=== PATIENT | female | born 1995 | race Caucasian/White ===

== ENCOUNTER 2017-11-11 15:39 | Emergency (ER) | payer OTHER ==
[2017-11-11] MEDS ORDERED: PANTOPRAZOLE IV PUSH 40 MG VIAL. IVP (16:15)
[2017-11-11 16:37] LABS: URINE HCG POC HCG NEGATIVE (Negative)
[2017-11-11 16:37] LABS: BILIRUBIN,URINE NEGATIVE (NEG); CLARITY,URINE CLEAR; COLOR,URINE YELLOW; GLUCOSE,URINE NEGATIVE (NEG); NITRITE,URINE NEGATIVE (NEG); PH,URINE 7.5; PROTEIN,URINE NEGATIVE (NEG-TRACE)
[2017-11-11 16:43] LABS: BACTERIA,URINE FEW /HPF (0-FEW); RBC,URINE RARE /HPF (0-2); WBC,URINE OCC /HPF (0-4)
[2017-11-11 16:44] LABS: SQUAMOUS EPITHELIAL CELL,UR FEW /LPF
[2017-11-11] MEDS: IV NORMAL SALINE 1000ML BAG 1,000 ML IV (17:22)
[2017-11-11] MEDS: PROCHLORPERAZINE 10 MG/2 ML VIAL. IV (17:25)
[2017-11-11] MEDS: diphenhydrAMINE 50 MG/ML VIAL IVP (17:25)
[2017-11-11] MEDS: KETOROLAC 30 MG/ML INJ. IV (17:25)
[2017-11-11 17:35] LABS: ADD MAN DIFF? NO
[2017-11-11 17:37] LABS: BASO # 0.1 x10^3/uL (0.0-0.2); BASO % 1 % (0-3); EOS # 0.1 x10^3/uL (0.0-0.7); EOS % 1 % (0-3); HEMATOCRIT 43.7 % (36.0-47.0); HEMOGLOBIN 14.9 g/dL (12.0-15.5); LYMPH # 2.4 x10^3/uL (1.0-4.8); LYMPH % 19 % (24-48); MEAN CORPUSCULAR HEMOGLOBIN 28 pg (25-35); MEAN CORPUSCULAR HGB CONC 34 g/dL (31-37); MEAN CORPUSCULAR VOLUME 81 fL (79-100); MONO % 8 % (0-9); NEUT # 8.8 x10^3uL (1.8-7.7); NEUT % 72 % (31-73); PLATELET COUNT 309 x10^3/uL (140-400); RED BLOOD COUNT 5.37 x10^6/uL (3.50-5.40); RED CELL DISTRIBUTION WIDTH 13.8 % (11.5-14.5); WHITE BLOOD COUNT 12.3 x10^3/uL (4.0-11.0)
[2017-11-11 17:52] LABS: ANION GAP 11 (6-14); BLOOD UREA NITROGEN 11 mg/dL (7-20); BUN/CREATININE RATIO 16 (6-20); CARBON DIOXIDE 25 mmol/L (21-32); CHLORIDE 103 mmol/L (98-107); CREATININE 0.7 mg/dL (0.6-1.0); GFR 106.7; GLUCOSE 87 mg/dL (70-99); POTASSIUM 4.5 mmol/L (3.5-5.1); SODIUM 139 mmol/L (136-145)
[2017-11-11 17:56] LABS: ALBUMIN 3.6 g/dL (3.4-5.0); ALBUMIN/GLOBULIN RATIO 1.1 (1.0-1.7); ALK PHOS 108 U/L (46-116); ALT (SGPT) 33 U/L (14-59); AST (SGOT) 14 U/L (15-37); LIPASE 84 U/L (73-393); TOTAL BILIRUBIN 0.3 mg/dL (0.2-1.0)
== END 2017-11-11 18:52 | disposition home or self-care (01) ==
LOC: ER 15:39
DX: R11.2 Nausea with vomiting, unspecified (principal); R51 Headache; R42 Dizziness and giddiness; R10.32 Left lower quadrant pain; F17.210 Nicotine dependence, cigarettes, uncomplicated; Z88.0 Allergy status to penicillin; Z88.1 Allergy status to other antibiotic agents; Z87.442 Personal history of urinary calculi
CPT/HCPCS: 36415; 70450; 74176; 80053; 81001; 81025; 83690; 85025; 93005; 96361; 96374; 96375; 99285-25; J0780; J1200; J1885; J7030

== ENCOUNTER 2017-11-21 19:01 | Emergency (ER) | payer OTHER ==
[2017-11-21] MEDS: DEXAMETHASONE 4 MG TABLET PO (20:11)
== END 2017-11-21 20:05 | disposition home or self-care (01) ==
LOC: ER 19:01
DX: H92.03 Otalgia, bilateral (principal); G43.909 Migraine, unspecified, not intractable, without status migrainosus; Z87.442 Personal history of urinary calculi; Z88.0 Allergy status to penicillin; Z88.1 Allergy status to other antibiotic agents
CPT/HCPCS: 99281; 99283

== ENCOUNTER 2018-01-23 15:09 | Emergency (ER) | payer OTHER ==
[~2018-01-23] VITALS: Ht 160 cm; Wt 81.6 kg
[~2018-01-23 15:09] MED LIST: ONDA4TAB10 SL
[2018-01-23 15:39] VITALS: BP 121/70
[2018-01-23] MEDS ORDERED: ALBUTEROL SULFATE 2.5 MG/3 ML NEBU. NEB ONE (16:30)
[2018-01-23] MEDS ORDERED: PROAIR HFA8.5 GM INH (18:07)
[2018-01-23] MEDS ORDERED: BENZ100C PO (18:07)
--- NOTE | 2018-01-23 18:08 | PHYS DOC ---
Past Medical History Past Medical History: Asthma, Ectopic , Migraines Past Surgical History: Cancer Surgery Additional Past Surgical Histo: kidney stone, ectopic Alcohol Use: None Drug Use: None Adult General Chief Complaint Chief Complaint: ASTHMA HPI HPI Patient is a 22 year old female who presents to the emergency Department today with complaints of right-sided lateral rib pain with cough and deep breath. She also reports wheezing and shortness of breath for the last 3 days with a history of asthma. She denies any fever, nausea, vomiting, back pain, abdominal pain, urinary symptoms, or ear pain. She states she has had diarrhea recently. She states she has been using her Pro Air inhaler and taking dayquil at home but these medications have not been helping to reduce her symptoms. Review of Systems Review of Systems Constitutional: Denies fever or chills [] Eyes: Denies change in visual acuity, redness, or eye pain [] HENT: Denies nasal congestion,ear pain, or sore throat [] Respiratory: Reports cough, wheezing, and shortness of breath [] Cardiovascular: Denies palpitations or dizziness GI: Denies abdominal pain, nausea, or vomiting; reports diarrhea for the last 3 days : Denies dysuria, urinary frequency, or hematuria [] Musculoskeletal: Denies back pain or joint pain [] Integument: Denies rash or skin lesions [] Neurologic: Denies headache, focal weakness or sensory changes [] All other systems were reviewed and found to be within normal limits, except as documented in this note. Current Medications Current Medications Current Medications Medications (Trade) Dose Ordered Sig/Izabella Start Time Stop Time Status Last Admin Dose Admin Albuterol Sulfate (Ventolin Neb Soln) 2.5 mg 1X ONCE 01/23/18 16:30 01/23/18 16:31 DC 01/23/18 16:52 2.5 MG Allergies Allergies Allergies Coded Allergies Type Severity Reaction Last Updated Verified Penicillins Allergy Intermediate 11/11/17 Yes amoxicillin Allergy Intermediate 11/11/17 Yes Physical Exam Physical Exam Constitutional: Well developed, well nourished, no acute distress, non-toxic appearance. [] HENT: Normocephalic, atraumatic, bilateral external ears normal, oropharynx moist, no oral exudates, nose normal. [] Eyes: PERRLA, EOMI, conjunctiva normal, no discharge. [] Neck: Normal range of motion, no tenderness, supple, no stridor. [] Cardiovascular:Heart rate regular rhythm, no murmur [] Lungs & Thorax: Bilateral breath sounds clear to auscultation, diminished in bilateral bases [] Skin: Warm, dry, no erythema, no rash. [] Extremities: No cyanosis, no clubbing, ROM intact, no edema. [] Neurologic: Alert and oriented X 3, normal motor function, normal sensory function, no focal deficits noted. [] Psychologic: Affect normal, judgement normal, mood normal. [] Current Patient Data Vital Signs Vital Signs Date Time Temp Pulse Resp B/P (MAP) Pulse Ox O2 Delivery O2 Flow Rate FiO2 01/23/18 16:52 98 Room Air 01/23/18 15:39 98.9 105 18 121/70 (87) 98.9 EKG EKG [] Radiology/Procedures Radiology/Procedures cxr negative, read by Dr. Montenegro [] Course & Med Decision Making Course & Med Decision Making Pertinent Labs and Imaging studies reviewed. (See chart for details) Dx: URI, asthma exacerbation CXR normal, pt was given one albuterol nebulizer tx in the ER, lung sounds improved and clear in all eavns after treatment. Prescriptions for proair MDI and tessalon written. Patient verbalized an understanding of home care, medications, follow-up, and return to ED instructions and was in agreement with the plan of care. [] Dragon Disclaimer Dragon Disclaimer This electronic medical record was generated, in whole or in part, using a voice recognition dictation system. Departure Departure Impression: Primary Impression: URI (upper respiratory infection) Additional Impression: Asthma Disposition: 01 HOME, SELF-CARE Condition: STABLE Referrals: NO PCP (PCP) Patient Instructions: Asthma, Adult, [id number], Upper Respiratory Infection , Adult, [id number] Additional Instructions: Fill prescription(s) and use as directed. Cool mist humidifier in room at bedtime. Tylenol or ibuprofen prn pain/fever. Increase clear fluids. Avoid triggers such as smoke, fragrance, dust, and pollen. Follow-up with your primary care doctor next week, return to the ER if your symptoms worsen. Scripts Benzonatate (TESSALON PERLE) 100 Mg Capsule 1 CAP PO TID, #21 CAP 0 Refills Prov: DANIEL SMITH LOOM MECHANIC 01/23/18 Albuterol Sulfate (PROAIR HFA INHALER) 8.5 Gm Hfa.aer.ad 1-2 PUFF INH PRN Q4-6HRS PRN for SHORTNESS OF BREATH, #1 INHALER 1 Refill Prov: DANIEL SMITH LOOM MECHANIC 01/23/18 Problem Qualifiers Primary Impression: URI (upper respiratory infection) URI type: unspecified URI Qualified Codes: J06.9 - Acute upper respiratory infection, unspecified Additional Impression: Asthma Asthma severity: mild Asthma persistence: intermittent Asthma complication type: uncomplicated Qualified Codes: J45.20 - Mild intermittent asthma, uncomplicated DANIEL SMITH LOOM MECHANIC Jan 23, 2018 18:07
--- NOTE | 2018-01-23 21:55 | RAD ---
CHEST PA LATERAL History: CONGESTION. HX OF ASTHMA.. Comparison: None. Heart size: Within normal limits. Natalia/mediastinum: Within normal limits Lungs: No focal airspace consolidation. Pleura: No evidence of pleural effusion. Pneumothorax: None visualized Bones: Regional skeleton appears grossly intact. Miscellaneous: None Impression: No acute radiographic findings. Electronically signed by: Kaden Villatoro MD (01/23/2018 9:51 PM) [facility]
== END 2018-01-23 18:20 | disposition home or self-care (01) ==
LOC: ER 15:09
DX: J45.20 Mild intermittent asthma, uncomplicated (principal); J06.9 Acute upper respiratory infection, unspecified; R07.81 Pleurodynia; R19.7 Diarrhea, unspecified; G43.909 Migraine, unspecified, not intractable, without status migrainosus; Z88.0 Allergy status to penicillin; Z88.1 Allergy status to other antibiotic agents
CPT/HCPCS: 71046; 94640; 99284; J7613

== ENCOUNTER → 2018-05-03 | Day surgery (SDC) | payer OTHER ==
[~2018-05-03] MED LIST changes: +ALBU2.5V8 INH; +BENZ100C PO; +IV RINGERS,LACTATED 1000ML 1,000 ML IV SCH; +LIDOCAINE 1% PF 2 ML VIAL. ID PRN; +MIDAZOLAM HCL/PF 2 MG/2 ML VIAL. IV PRN; +PROPOFOL 20 ML IV ONE; +fentaNYL PF VIAL 100 MCG/2 ML VIAL IV PRN
[2018-05-03 12:01] LABS: U PREG PATIENT NEGATIVE (NEG)
[2018-05-03 12:35] VITALS: BP 109/59
--- NOTE | 2018-05-03 18:36 | CONS ---
DATE OF CONSULTATION: 05/03/2018 REASON FOR CONSULTATION: Persistent right upper quadrant abdominal pain, nausea and vomiting. HISTORY OF PRESENT ILLNESS: A 23-year-old female whose past medical history is significant for gastric ulcers, 1, para 1, seen with persistent intermittent right upper quadrant abdominal pain, which was exacerbated by fatty, greasy and spicy food. She had one episode when she was actually in the hospital for approximately 2 weeks, at which time, imaging studies including CT, ultrasound were unrevealing. Family history is positive for gallbladder disease with her sister and mother as well as ulcer disease with her mom. With the continued issues and the lack of resolution with Zocor, Pepcid, and dicyclomine, she is here today. PAST MEDICAL HISTORY: History of gastric ulcers, anxiety, 1, para 1. ALLERGIES: AMOXICILLIN. FAMILY HISTORY: Significant for diabetes with grandmother, peptic ulcer disease with her mother and gallbladder disease with her mother and sister. MEDICATIONS: Include sucralfate, famotidine and dicyclomine. PAST SURGICAL HISTORY: Oophorectomy, nephrolithiasis, 3 LEEP procedures. REVIEW OF SYSTEMS: Per records. PHYSICAL EXAMINATION: GENERAL: Reveals a well-nourished, well-developed female who is alert and oriented, no acute distress. LUNGS: Clear. CARDIOVASCULAR: Reveals an S1, S2 without S3, S4 or appreciable murmur. ABDOMEN: Reveals soft abdomen with epigastric tenderness to deep palpation. No appreciable hepatosplenomegaly. EXTREMITIES: Reveals no cyanosis, clubbing or edema. IMPRESSION AND PLAN: Right upper quadrant epigastric abdominal pain, etiology is to be determined. Differential includes celiac disease, peptic ulcer disease and/or chronic cholecystitis. We will recommend upper endoscopy to further assess. If this is unrevealing, then HIDA scan with ejection fraction would be pursued. ELIZABET MON MD DR: EDIS/haven JOB#: [id number] / [id number] LANI Fitzpatrick
== END | disposition home or self-care (01) ==
LOC: ENDOS 11:19
PROVIDERS: ATTEND Internal Medicine Gastroenterology
DX: K29.50 Unspecified chronic gastritis without bleeding (principal); J45.909 Unspecified asthma, uncomplicated; F41.9 Anxiety disorder, unspecified; Z83.3 Family history of diabetes mellitus; G43.909 Migraine, unspecified, not intractable, without status migrainosus; Z88.0 Allergy status to penicillin; Z98.890 Other specified postprocedural states; Z87.442 Personal history of urinary calculi; Z79.899 Other long term (current) drug therapy; Z90.721 Acquired absence of ovaries, unilateral; F17.200 Nicotine dependence, unspecified, uncomplicated; Z88.1 Allergy status to other antibiotic agents
CPT/HCPCS: 43235; 81025; J2704

== ENCOUNTER 2018-05-12 18:31 | Emergency (ER) | payer OTHER ==
[~2018-05-12] VITALS: Ht 160 cm; Wt 83.0 kg
[~2018-05-12 18:31] MED LIST changes: -IV RINGERS,LACTATED 1000ML 1,000 ML IV SCH; -LIDOCAINE 1% PF 2 ML VIAL. ID PRN; -MIDAZOLAM HCL/PF 2 MG/2 ML VIAL. IV PRN; -PROPOFOL 20 ML IV ONE; -fentaNYL PF VIAL 100 MCG/2 ML VIAL IV PRN
[2018-05-12 19:20] VITALS: BP 129/87
--- NOTE | 2018-05-12 23:23 | PHYS DOC ---
Past Medical History Past Medical History: Asthma, Ectopic , Migraines Past Surgical History: Cancer Surgery Additional Past Surgical Histo: kidney stone, ectopic Alcohol Use: None Drug Use: None Adult General Chief Complaint Chief Complaint: ABDOMINAL PAIN HPI HPI Patient is a 23 year old female who presents to the emergency room with complaints of right lower quadrant pain and right-sided abdominal pain for the last 2 months. Patient states that the pain has been increased over the last 3 days. Currently she reports the pain as 8 out of 10 on the pain scale. Patient states she was sent from the urgent care center to be evaluated for appendicitis. She reports having difficulty urinating, headache, sore throat, ear pain, dry cough, and a fever up to 104 over the last 3 days. Patient last took 2 full strength Tylenol at approximately 1800 this evening. She states that she has vomited 3 or 4 times in the last 24 hours, she denies any diarrhea. Patient states that her last menstrual period was on March 27, she reports having a Nexplanon implant and denies chance of . Patient states that she does not smoke, drink alcohol, or use any illicit drugs. Review of Systems Review of Systems Constitutional: See history of present illness Eyes: Denies redness, or eye pain [] HENT: See history of present illness Respiratory: Denies wheezing or shortness of breath; see history of present illness Cardiovascular: No additional information not addressed in HPI [] GI: Denies diarrhea; history of present illness [] : Denies irregular vaginal discharge, or vaginal odor; reports having difficulty urinating over the last couple of days. Musculoskeletal: Denies back pain or joint pain [] Integument: Denies rash or skin lesions [] Neurologic: Denies focal weakness or sensory changes [] complete systems were reviewed and found to be within normal limits, except as documented in this note. Allergies Allergies Allergies Coded Allergies Type Severity Reaction Last Updated Verified Penicillins Allergy Intermediate 11/11/17 Yes amoxicillin Allergy Intermediate 11/11/17 Yes Physical Exam Physical Exam Constitutional: Well developed, well nourished, no acute distress, non-toxic appearance. [] HENT: Normocephalic, atraumatic, bilateral external ears normal, bilateral TMs normal, posterior pharynx is normal oropharynx moist, no oral exudates, nose normal. [] Eyes: conjunctiva normal, no discharge. [] Neck: Normal range of motion, no tenderness, supple, no stridor. [] Cardiovascular:Heart rate regular rhythm, no murmur [] Lungs & Thorax: Bilateral breath sounds clear to auscultation [] Abdomen: Bowel sounds normal, soft, no masses, no pulsatile masses; right lower quadrant and right upper quadrant tenderness to palpation, negative Rovsing sign , negative psoas sign, positive McBurney's point tenderness [] Skin: Warm, dry, no erythema, no rash. [] Extremities: No cyanosis, no clubbing, ROM intact, no edema. [] Neurologic: Alert and oriented X 3, normal motor function, normal sensory function, no focal deficits noted. [] Psychologic: Affect normal, judgement normal, mood normal. [] Current Patient Data Vital Signs Vital Signs Date Time Temp Pulse Resp B/P (MAP) Pulse Ox O2 Delivery O2 Flow Rate FiO2 05/12/18 19:20 98.8 98 16 129/87 (101) 96 Room Air 98.8 Lab Values Laboratory Tests Test 05/12/18 19:30 POC Urine HCG, Qualitative Hcg negative (Negative) EKG EKG [] Radiology/Procedures Radiology/Procedures [] Course & Med Decision Making Course & Med Decision Making Pertinent Labs and Imaging studies reviewed. (See chart for details) 2006- patient refused further treatment of medical condition in the ER, wished to sign out AGAINST MEDICAL ADVICE. Pt was encouraged to stay for treatment advised possible delay in care if leaving AMA, pt refused to stay reports that she wishes to be treated elsewhere. [] Dragon Disclaimer Dragon Disclaimer This electronic medical record was generated, in whole or in part, using a voice recognition dictation system. Departure Departure Impression: Primary Impression: Left against medical advice Disposition: 07 AGAINST MEDICAL ADVICE Condition: STABLE SELWYNDANIEL BLANCO Lay DIGITAL COMMUNITY MANAGER May 12, 2018 23:23
== END 2018-05-12 20:12 | disposition left against medical advice (07) ==
LOC: ER 18:31
DX: R10.31 Right lower quadrant pain (principal); R10.11 Right upper quadrant pain; R30.0 Dysuria; R51 Headache; J02.9 Acute pharyngitis, unspecified; R05 Cough; R50.9 Fever, unspecified; R11.10 Vomiting, unspecified; J45.909 Unspecified asthma, uncomplicated; G43.909 Migraine, unspecified, not intractable, without status migrainosus; Z88.0 Allergy status to penicillin; Z88.1 Allergy status to other antibiotic agents
CPT/HCPCS: 81025; 99282

== ENCOUNTER 2020-06-19 13:20 | Emergency (ER) | payer OTHER ==
[~2020-06-19] VITALS: Ht 160 cm; Wt 90.0 kg
[2020-06-19] MEDS ORDERED: MORPHINE SULFATE 4 MG/ML VIAL. IV ONE (15:15)
--- NOTE | 2020-06-19 15:19 | PHYS DOC ---
Past Medical History Past Medical History: Asthma, Ectopic , Migraines Past Surgical History: Cancer Surgery Additional Past Surgical Histo: kidney stone, ectopic Smoking Status: Current Every Day Smoker Alcohol Use: None Drug Use: None Adult General Chief Complaint Chief Complaint: ABDOMINAL PAIN HPI HPI Patient is a 25 year old female presenting the emergency department for new onset of abdominal pain. Patient underwent laparoscopy for endometriosis yesterday. Patient presented to the clinic this morning and was noted to have more bruising and tenderness of her her incision sites. CLIENT SOLUTIONS MANAGER called ahead and asked the patient be evaluated and was concerned about a week or injury intra- abdominally. Patient is stating that she is been having worsening abdominal pain but denies any fevers, chills, dizziness or lightheadedness. Review of Systems Review of Systems Constitutional: Denies fever or chills [] Eyes: Denies change in visual acuity, redness, or eye pain [] HENT: Denies nasal congestion or sore throat [] Respiratory: Denies cough or shortness of breath [] Cardiovascular: No additional information not addressed in HPI [] GI: Denies abdominal pain, nausea, vomiting, bloody stools or diarrhea [] : Denies dysuria or hematuria [] Musculoskeletal: Denies back pain or joint pain [] Integument: Denies rash or skin lesions [] Neurologic: Denies headache, focal weakness or sensory changes [] Endocrine: Denies polyuria or polydipsia [] All other systems were reviewed and found to be within normal limits, except as documented in this note. Current Medications Current Medications Current Medications Medications (Trade) Dose Ordered Sig/Izabella Start Time Stop Time Status Last Admin Dose Admin Info (CONTRAST GIVEN -- Rx MONITORING) 1 each PRN DAILY PRN 06/19/20 15:45 06/21/20 15:44 Iohexol (Omnipaque 300 Mg/ml) 75 ml 1X ONCE 06/19/20 15:30 06/19/20 15:32 DC 06/19/20 15:30 75 ML Ketorolac Tromethamine (Toradol 15mg Vial) 15 mg STK-MED ONCE 06/19/20 16:21 06/19/20 16:22 DC Morphine Sulfate (Morphine Sulfate) 4 mg 1X ONCE 06/19/20 15:15 06/19/20 15:18 DC 06/19/20 15:31 4 MG Allergies Allergies Allergies Coded Allergies Type Severity Reaction Last Updated Verified Penicillins Allergy Intermediate 11/11/17 Yes amoxicillin Allergy Intermediate 11/11/17 Yes Physical Exam Physical Exam Constitutional: Well developed, well nourished, no acute distress, non-toxic appearance. [] HENT: Normocephalic, atraumatic, bilateral external ears normal, oropharynx moist, no oral exudates, nose normal. [] Eyes: PERRLA, EOMI, conjunctiva normal, no discharge. [] Neck: Normal range of motion, no tenderness, supple, no stridor. [] Cardiovascular:Heart rate regular rhythm, no murmur [] Lungs & Thorax: Bilateral breath sounds clear to auscultation [] Abdomen: Moderate abdominal tenderness primarily in the lower quadrant adjacent to the incision site., soft, no tenderness, no masses, no pulsatile masses. [] Skin: Warm, dry, no erythema, no rash. [] Back: No tenderness, no CVA tenderness. [] Extremities: No tenderness, no cyanosis, no clubbing, ROM intact, no edema. [] Neurologic: Alert and oriented X 3, normal motor function, normal sensory function, no focal deficits noted. [] Psychologic: Affect normal, judgement normal, mood normal. [] Current Patient Data Vital Signs Vital Signs Date Time Temp Pulse Resp B/P (MAP) Pulse Ox O2 Delivery O2 Flow Rate FiO2 06/19/20 15:55 16 99 Room Air 06/19/20 15:20 98.6 94 121/61 (81) 98.6 Lab Values Laboratory Tests Test 06/19/20 14:25 06/19/20 15:18 06/19/20 15:25 Urine Collection Type Unknown Urine Color Yellow Urine Clarity Cloudy Urine pH 6.0 (<5.0-8.0) Urine Specific [place] >=1.030 (1.000-1.030) Urine Protein Negative mg/dL (NEG-TRACE) Urine Glucose (UA) Negative mg/dL (NEG) Urine Ketones (Stick) Negative mg/dL (NEG) Urine Blood Large (NEG) Urine Nitrite Negative (NEG) Urine Bilirubin Small (NEG) Urine Urobilinogen Dipstick 1.0 mg/dL (0.2 mg/dL) Urine Leukocyte Esterase Negative (NEG) Urine RBC Occ /HPF (0-2) Urine WBC 1-4 /HPF (0-4) Urine Squamous Epithelial Cells Many /LPF Urine Bacteria Mod /HPF (0-FEW) Urine Mucus Mod /LPF POC Urine HCG, Qualitative Hcg negative (Negative) White Blood Count 22.0 x10^3/uL (4.0-11.0) H Red Blood Count 4.39 x10^6/uL (3.50-5.40) Hemoglobin 12.2 g/dL (12.0-15.5) Hematocrit 36.6 % (36.0-47.0) Mean Corpuscular Volume 83 fL (79-100) Mean Corpuscular Hemoglobin 28 pg (25-35) Mean Corpuscular Hemoglobin Concent 34 g/dL (31-37) Red Cell Distribution Width 14.4 % (11.5-14.5) Platelet Count 307 x10^3/uL (140-400) Neutrophils (%) (Auto) 70 % (31-73) Lymphocytes (%) (Auto) 23 % (24-48) L Monocytes (%) (Auto) 6 % (0-9) Eosinophils (%) (Auto) 0 % (0-3) Basophils (%) (Auto) 1 % (0-3) Neutrophils # (Auto) 15.4 x10^3/uL (1.8-7.7) H Lymphocytes # (Auto) 5.0 x10^3/uL (1.0-4.8) H Monocytes # (Auto) 1.3 x10^3/uL (0.0-1.1) H Eosinophils # (Auto) 0.1 x10^3/uL (0.0-0.7) Basophils # (Auto) 0.3 x10^3/uL (0.0-0.2) H Segmented Neutrophils % 65 % (35-66) Band Neutrophils % 5 % (0-9) Lymphocytes % 19 % (24-48) L Atypical Lymphocytes % (Manual) 8 % (0-0) H Monocytes % 3 % (0-10) Platelet Estimate Adequate (ADEQUATE) Sodium Level 140 mmol/L (136-145) Potassium Level 3.8 mmol/L (3.5-5.1) Chloride Level 105 mmol/L (98-107) Carbon Dioxide Level 26 mmol/L (21-32) Anion Gap 9 (6-14) Blood Urea Nitrogen 11 mg/dL (7-20) Creatinine 0.6 mg/dL (0.6-1.0) Estimated GFR (Cockcroft-Gault) 123.9 BUN/Creatinine Ratio 18 (6-20) Glucose Level 115 mg/dL (70-99) H Calcium Level 8.4 mg/dL (8.5-10.1) L Total Bilirubin 0.1 mg/dL (0.2-1.0) L Aspartate Amino Transferase (AST) 11 U/L (15-37) L Alanine Aminotransferase (ALT) 27 U/L (14-59) Alkaline Phosphatase 45 U/L (46-116) L Total Protein 6.3 g/dL (6.4-8.2) L Albumin 2.9 g/dL (3.4-5.0) L Albumin/Globulin Ratio 0.9 (1.0-1.7) L Lipase 72 U/L (73-393) L Serum Test, Qualitative Negative (NEG) Laboratory Tests 06/19/20 15:25 Laboratory Tests 06/19/20 15:25 EKG EKG [] Radiology/Procedures Radiology/Procedures [] Course & Med Decision Making Course & Med Decision Making Pertinent Labs and Imaging studies reviewed. (See chart for details) 25-year-old female presenting the emergency department after laparoscopy complaining of new onset of abdominal pain which is raise concern for possible intra-abdominal injury or possibly mild cellulitis although this is less likely based on the timing. At this time will obtain labs, treat symptomatically and obtain a CT scan of the abdomen pelvis with IV contrast. Ct scan negative for any acute intra-abdominal pathology. I had a discussion with Dr. Null and feel that at this point patient safe to be discharged home. Patient is been prescribed antibiotics and pain medications by her surgeon and is planning to make follow-up appointment this week. Dragon Disclaimer Dragon Disclaimer This electronic medical record was generated, in whole or in part, using a voice recognition dictation system. Departure Departure Impression: Primary Impression: Post-operative pain Disposition: 01 DC HOME SELF CARE/HOMELESS Condition: GOOD Referrals: NO PCP (PCP) Patient Instructions: Incision Care Additional Instructions: EMERGENCY DEPARTMENT GENERAL DISCHARGE INSTRUCTIONS Thank you for coming to [facility] Emergency Department (ED) today and trusting us with you care. We trust that you had a positive experience in our Emergency Department. If you wish to speak to the department management, you may call the Director at [phone]. YOUR FOLLOW UP INSTRUCTIONS ARE FOLLOWS: 1. Do you have a private Doctor? If you do not have a private doctor, please ask for a resource list of physicians or clinics that may be able to assist you with follow up care. 2. The Emergency Physicain has interpreted your x-rays. The X-Ray specialist will also review them. If there is a change in the findings, you will be notified in 48 hours when at all possible. 3. A lab test or culture has been done, your results will be reviewed and you will be notified if you need a change in treatment. ADDITIONAL INSTRUCTIONS AND INFORMATION: 1. Your care today has been supervised by a physician who is specially trained in emergency care. Many problems require more than one evaluation for a complete diagnosis and treatment. We recommend that you schedule your follow up appointment as recommended to ensure complete treatment of you illness or injury. If you are unable to obtain follow up care and continue to have a problem, or if your condition worsens, we recommend that you return to the ED. 2. We are not able to safely determine your condition over the phone nor are we able to give sound medical advice over the phone. For these safety reasons, if you call for medical advice we will ask you to come to the ED for further evaluation. 3. If you have any questions regarding these discharge instructions please call the ED at [phone]. SAFETY INFORMATION: In the interest of safety, wellness, and injury prevention; we encourage you to wear your sealbelt, if you smoke; quite smoking, and we encourage family to use a protective helmet for bicycling and other sporting events that present an increased risk for head injury. IF YOUR SYMPTOMS WORSEN OR NEW SYMPTOMS DEVELOP, OR YOU HAVE CONCERNS ABOUT YOUR CONDITION; OR IF YOUR CONDITION WORSENS WHILE YOU ARE WAITING FOR YOUR FOLLOW UP APPOINTMENT; EITHER CONTACT YOUR PRIMARY CARE DOCTOR, THE PHYSICIAN WHOSE NAME AND NUMBER YOU WERE GIVEN, OR RETURN TO THE ED IMMEDIATELY. NEREIDA COLE MD Jun 19, 2020 15:19
[2020-06-19 15:20] VITALS: BP 121/61
[2020-06-19 15:24] LABS: BILIRUBIN,URINE SMALL (NEG); CLARITY,URINE CLOUDY; COLOR,URINE YELLOW; NITRITE,URINE NEGATIVE (NEG); PROTEIN,URINE NEGATIVE (NEG-TRACE)
[2020-06-19] MEDS ORDERED: IOHEXOL 300 MG/ML 100ML VIAL. IV ONE (15:30)
[2020-06-19 15:34] LABS: BASO # 0.3 x10^3/uL (0.0-0.2); BASO % 1 % (0-3); EOS # 0.1 x10^3/uL (0.0-0.7); EOS % 0 % (0-3); HEMATOCRIT 36.6 % (36.0-47.0); HEMOGLOBIN 12.2 g/dL (12.0-15.5); LYMPH % 23 % (24-48); MEAN CORPUSCULAR HEMOGLOBIN 28 pg (25-35); MEAN CORPUSCULAR HGB CONC 34 g/dL (31-37); MEAN CORPUSCULAR VOLUME 83 fL (79-100); MONO # 1.3 x10^3/uL (0.0-1.1); MONO % 6 % (0-9); NEUT # 15.4 x10^3/uL (1.8-7.7); NEUT % 70 % (31-73); PLATELET COUNT 307 x10^3/uL (140-400); RED BLOOD COUNT 4.39 x10^6/uL (3.50-5.40); RED CELL DISTRIBUTION WIDTH 14.4 % (11.5-14.5)
[2020-06-19 15:43] LABS: BACTERIA,URINE MOD /HPF (0-FEW)
[2020-06-19 15:44] LABS: RBC,URINE OCC /HPF (0-2)
[2020-06-19] MEDS ORDERED: CONTRAST GIVEN. MC PRN (15:45)
[2020-06-19 15:50] LABS: CALCIUM 8.4 mg/dL (8.5-10.1); CREATININE 0.6 mg/dL (0.6-1.0); GFR 123.9; POTASSIUM 3.8 mmol/L (3.5-5.1)
[2020-06-19 15:51] LABS: PREG TEST PT QUAL NEGATIVE (NEG)
[2020-06-19 15:55] LABS: ALBUMIN 2.9 g/dL (3.4-5.0); ALBUMIN/GLOBULIN RATIO 0.9 (1.0-1.7); TOTAL BILIRUBIN 0.1 mg/dL (0.2-1.0); TOTAL PROTEIN 6.3 g/dL (6.4-8.2)
[2020-06-19 16:06] LABS: % ATYL 8 % (0-0); % BANDS 5 % (0-9); % LYMPHS 19 % (24-48); % MONOS 3 % (0-10); % SEGS 65 % (35-66); PLT ESTIMATE ADEQUATE (ADEQUATE)
[2020-06-19] MEDS ORDERED: KETOROLAC 15 MG/ML VIAL. ONE (16:21)
--- NOTE | 2020-06-19 16:28 | RAD ---
Exam: CT of abdomen and pelvis with contrast INDICATION: Abdominal pain TECHNIQUE: Sequential axial images through the abdomen and pelvis obtained following the administrati on of 75 mL of Omni 300 IV contrast. Sagittal and coronal reformatted images were reconstructed from the axial data and reviewed. Comparisons: 11/11/2017 FINDINGS: Heart size is normal. No pericardial effusion. Strandy opacities at dependent portion lungs likely re presenting atelectasis. No pleural effusion. Liver, spleen, pancreas, gallbladder and adrenals are unremarkable. No perinephric inflammation or hydronephrosis. No renal or ureteral calculi are identified. Bladder is decompressed not well evaluated. Uterus is not enlarged. No abnormal adnexal mass. Large and small bowel are unremarkable. Appendix is normal. No free intra-abdominal air or fluid. No obstruction. Abdominal aorta has a normal course and caliber. Abdominal vasculature is patent. No enlarged intra-abdominal lymph nodes are identified. No suspicious osseous lesions or acute fractures. IMPRESSION: No acute process identified within the abdomen or pelvis. Exposure: One or more of the following in the visualized dose reduction techniques were utilized for this examination: 1. Automated exposure control 2. Adjustment of the MA and/or KV according to patient size 3. Use of iterative of reconstructive technique Electronically signed by: Kiya Cárdenas MD (06/19/2020 4:25 PM) [facility]
[2020-06-19] MEDS ORDERED: KETOROLAC 15 MG/ML VIAL. IVP ONE (16:30)
== END 2020-06-19 18:13 | disposition home or self-care (01) ==
LOC: ER 13:20
DX: G89.18 Other acute postprocedural pain (principal); R10.9 Unspecified abdominal pain; J45.909 Unspecified asthma, uncomplicated; G43.909 Migraine, unspecified, not intractable, without status migrainosus; F17.200 Nicotine dependence, unspecified, uncomplicated; Z87.442 Personal history of urinary calculi; Z85.9 Personal history of malignant neoplasm, unspecified; Z88.0 Allergy status to penicillin; Z88.1 Allergy status to other antibiotic agents
CPT/HCPCS: 36415; 74177; 80053; 81001; 81025; 83690; 84703; 85007; 85025; 96374; 96375; 99285; J1885; J2270; Q9967

== ENCOUNTER → 2020-07-24 | Outpatient (CLI) | payer OTHER ==
--- NOTE | 2020-07-24 10:32 | KCIC ---
INDICATION: Reason: RT PELVIC PAIN / Spl. Instructions: / History: COMPARISON: CT from June 19, 2020 TECHNIQUE: Grayscale and color ultrasound images uterus and adnexa. Transabdominal and transvaginal images obtained. Transvaginal images were needed to better visualize structures that were limited on transabdominal imaging. FINDINGS: Uterus: 68 x 40 x 38 mm. 1 mm endometrial stripe Right Ovary: 27 x 16 x 10 mm. Left Ovary: 26 x 13 x 12 mm. Vascular flow identified to bilateral ovaries. Trace free fluid in pelvis. Within physiologic range. IMPRESSION: * Vascular flow seen to the ovaries. * Uterus unremarkable Electronically signed by: Mariano Franco MD (07/24/2020 10:30 AM) [id number]
--- NOTE | 2020-07-24 10:35 | KCIC ---
INDICATION : Reason: RT SIDED ABD PAIN / Spl. Instructions: / History: COMPARISON: None TECHNIQUE: Multiple ultrasound images obtained through the abdomen in grayscale and color. FINDINGS: Liver: Mildly echogenic Gallbladder: No wall thickening or stones. IVC: Partially distended at level of liver. Common Bile Duct: Not dilated. Pancreas: Not well seen secondary to overlying structures obscuring Right Kidney: No hydronephrosis. IMPRESSION: * No biliary ductal dilation or gallstones. Electronically signed by: Mariano Franco MD (07/24/2020 10:32 AM) [id number]
== END ==
LOC: KCIC US 08:56
PROVIDERS: ATTEND Obstetrics & Gynecology
DX: R10.2 Pelvic and perineal pain (principal); R10.9 Unspecified abdominal pain
CPT/HCPCS: 76705; 76856

== ENCOUNTER → 2021-07-02 | Outpatient (CLI) | payer OTHER ==
--- NOTE | 2021-07-02 08:53 | KCIC ---
EXAM: ULTRASOUND PELVIS INDICATION: Reason: PELVIC PAIN / COMPARISON: Pelvic ultrasound July 24, 2020. TECHNIQUE: Transabdominal sonography was performed. FINDINGS: Visualized urinary bladder is distended, no wall thickening. The uterus measures 6.6 x 4.6 x 3.4 cm. Endometrial stripe is normal measuring 5 mm. The ovaries are similar in size and demonstrate normal blood flow. There is a functional cyst of the right ovary measuring up to 2 cm. No evidence of adnexal mass. No pelvic free fluid is identified. IMPRESSION: Normal transabdominal pelvic ultrasound. Electronically signed by: Saji Diaz MD (07/02/2021 8:51 AM) [id number]
== END ==
LOC: KCIC US 07:52
DX: N83.291 Other ovarian cyst, right side (principal); N32.89 Other specified disorders of bladder
CPT/HCPCS: 76856